=== PATIENT | male | born 1995 | race American Indian/Alaskan Native ===

== ENCOUNTER 2020-10-07 14:46 | Emergency (ER) | payer OTHER ==
[2020-10-07 14:57] VITALS: BP 144/79
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
== END 2020-10-07 15:57 | disposition home or self-care (01) ==
LOC: ED 14:46
DX: L03.012 Cellulitis of left finger (principal); Z98.890 Other specified postprocedural states; Z79.899 Other long term (current) drug therapy
CPT/HCPCS: 99282